=== PATIENT | male | born 1975 | race Two or more races ===

== ENCOUNTER 2017-03-24 13:46 | Emergency (ER) | payer SELFPAY ==
[~2017-03-24] VITALS: Ht 172.7 cm; Wt 81.6 kg
[2017-03-24 14:15] VITALS: BP 134/91
[2017-03-24] MEDS ORDERED: Lidocaine 1% Plain 30 ml INJ ONE (14:15)
[2017-03-24] MEDS ORDERED: Bacitracin Oint UD TOPIC ONE (14:15)
[2017-03-24] MEDS ORDERED: TdaP Vaccine 0.5ml Syr IM ONE (14:15)
[2017-03-24] MEDS ORDERED: BACITRACIN15 GM TOPIC (15:08)
[2017-03-24 15:14] VITALS: BP 132/80
--- NOTE | 2017-03-24 18:08 | Emergency Room Report ---
History of Present Illness General Chief Complaint: Laceration Source: Patient Present Illness [facility] The patient is a 42-year-old male presenting for left head laceration. He states that he was at work and hit a piece of wood. He noticed pain and bleeding to the area. Pain described as a 4/10 dull ache and does not radiate. Pain worse with touch. Last tetanus shot unknown. He denies loss of consciousness, dizziness, nausea, vomiting, headache. He denies any other symptoms Allergies: Coded Allergies: No Known Allergies (Unverified , 03/24/17) Patient History Past Medical History: see triage record Pertinent Family History: none Reviewed Nursing Documentation: PMH: Agreed, PSxH: Agreed Nursing Documentation-PMH Past Medical History: No Stated History Review of Systems All Other Systems: negative except mentioned in HPI Physical Exam Vital Signs Date Time Temp Pulse Resp B/P Pulse Ox O2 Delivery O2 Flow Rate FiO2 03/24/17 13:49 98.1 79 15 134/91 96 Room Air Sp02 EP Interpretation: reviewed, normal General Appearance: no apparent distress, alert, GCS 15, non-toxic Head: normocephalic, atraumatic Eyes: bilateral eye PERRL, bilateral eye normal inspection ENT: hearing grossly normal, normal pharynx, no angioedema, normal voice Neck: full range of motion, supple/symm/no masses Musculoskeletal: back normal, gait/station normal, normal range of motion, non- tender Neurologic: alert, oriented x3, responsive, motor strength/tone normal, sensory intact, speech normal Psychiatric: judgement/insight normal, memory normal, mood/affect normal, no suicidal/homicidal ideation Skin: laceration - 5cm vertical laceration to the L temporal region Procedures Laceration/Wound Repair Laceration/Wound Repair : Consent: Verbal Wound Location: face Wound's Depth, Shape: superficial, linear Wound Length (cm): 5 Wound Explored: clean Irrigated w/ Saline (ccs): 200 Betadine Prep?: Yes Anesthesia: 1% Lidocaine Volume Anesthetic (ccs): 5 Wound Debrided: minimal Wound Repaired With: sutures Suture Size/Type: 6:0, proline Number of Sutures: 6 Layer Closure?: No Sterile Dressing Applied?: Yes Splint Applied?: No Sling Applied?: No Patient Tolerated: Well Complications: None Medical Decision Making PA Attestation Dr. Arevalo is my supervising physician. Patient management was discussed with my supervising physician Diagnostic Impression: Primary Impression: Facial laceration Qualified Codes: S01.81XA - Laceration without foreign body of other part of head, initial encounter ER Course The patient is a 42-year-old male presenting for left head laceration Ddx considered include but not limited to fracture, tendon/ligament injury, avulsion, nerve damage Physical exam: Head NC/AT. PERRL. A&Ox4 There is a 5 cm linear laceration to the left temporal region. No active bleeding The wound was irrigated with normal saline and cleaned with betadine. A 27g needle was used to administer 5mL of lidocaine w.o epi for local anaesthesia. 6 sutures were placed with 6-0 Nylon. The wound was well approximated and the patient tolerated the procedure well. The wound was then cleaned and bacitracin was applied. Tdap given The patient is discharged home and will followup with PMD. He is given laceration instructions Last Vital Signs Date Time Temp Pulse Resp B/P Pulse Ox O2 Delivery O2 Flow Rate FiO2 03/24/17 15:14 70 14 132/80 98 Room Air 03/24/17 14:15 98.1 Status: improved Disposition: HOME, SELF-CARE Condition: Improved Scripts Bacitracin (Bacitracin) 28.4 Gm Oint...g. 1 APPLIC TOPIC THREE TIMES A DAY, #28 GM Prov: ROGER JOHNS 03/24/17 Referrals: NOT CHOSEN IPA/MD,REFERRING (PCP) Patient Instructions: Facial Laceration Additional Instructions: I discussed my findings with the patient. All questions and concerns have been answered. Treatment and medication compliance have been addressed. I advised the patient that they need to follow up with PMD in 5-7 days for wound check and suture removal. If you are unable to see PMD, return to the ED in 5-7 days. Return to ED if pain remains or worsens, you notice discharge from the wound, the wound continues to bleed, the suture/s fall out, you notice a fever or chills, or for any reason. Patient is advised to keep the wound clean and apply an antibacterial ointment. Patient verbalized understanding of discharge instructions. ROGER JOHNS Mar 24, 2017 18:08
== END 2017-03-24 15:14 | disposition home or self-care (01) ==
LOC: EMR 15:00
DX: S01.81XA Laceration without foreign body of other part of head, initial encounter (principal); W22.8XXA Striking against or struck by other objects, initial encounter; Y92.89 Other specified places as the place of occurrence of the external cause; Z23 Encounter for immunization
CPT/HCPCS: 12013; 90471; 90715; 96372; 99284; J2001